=== PATIENT | male | born 1970 | race Hispanic/Latino ===

== ENCOUNTER 2018-08-22 16:44 | Emergency (ER) | payer BC, OTHER ==
[~2018-08-22] VITALS: Ht 165.1 cm; Wt 65.8 kg
[2018-08-22] MEDS ORDERED: NIFEDIPINE 10 MG CAP PO STA (17:46)
== END 2018-08-22 20:15 | disposition home or self-care (01) ==
LOC: ER 16:44
DX: R42 Dizziness and giddiness (principal); H61.21 Impacted cerumen, right ear; I10 Essential (primary) hypertension
CPT/HCPCS: 99283